=== PATIENT | female | born 1980 | race Caucasian/White ===

== ENCOUNTER → 2020-01-29 | Outpatient (CLI) | payer OTHER | LOC: COL.RAD 12:09 | DX: T79.2XXA Traumatic secondary and recurrent hemorrhage and seroma, initial encounter (principal) | CPT/HCPCS: A9585 ==

== ENCOUNTER → 2020-07-08 | Outpatient (CLI) | payer OTHER | LOC: COL.RAD 12:15 | DX: M79.605 Pain in left leg (principal); M79.601 Pain in right arm; M79.602 Pain in left arm; M54.5 Low back pain ==

== ENCOUNTER → 2020-07-22 | Outpatient (CLI) | payer OTHER | LOC: COL.RAD 08:10 | DX: R20.0 Anesthesia of skin (principal) | CPT/HCPCS: A9585 ==